=== PATIENT | male | born 1945 | race Caucasian/White ===

== ENCOUNTER → 2016-08-24 | Day surgery (SDC) | payer OTHER, MEDICARE ==
[~2016-08-24] VITALS: Ht 182.9 cm; Wt 70.0 kg
[~2016-08-24] MED LIST: FLOMAX0.4 MG PO; LEVAQUIN500 MG PO; PROAIR HFA8.5 GM INH; SYMBICORT 16010.2 GM INH; TYLENOL WITH C1 EACH PO
--- NOTE | ~2016-08-24 | OR ---
PATIENT'S NAME: GIOVANNA MCCORMICK [facility] AGE: 70 Y [address] ROOM: [place] [address] [place] [facility] [place] DATE: 08/24/2016 OR/Procedure Report DISCHARGE DATE: FAMILY PHYSICIAN: Salomón Guerin PA-C ATTENDING PHYSICIAN: Sheldon Parra SURGEON: Sheldon Parra MD CATERPILLAR OPERATOR: Charanjit Awan MD, PhD. DATE OF PROCEDURE: 08/24/2016 PREOPERATIVE DIAGNOSIS: Adenocarcinoma of the prostate. POSTOPERATIVE DIAGNOSIS: Adenocarcinoma of the prostate. PROCEDURE PERFORMED: Fiducial marker placement. ANESTHESIA: General. COMPLICATIONS: None. INDICATION FOR PROCEDURE: The patient is a 70-year-old male with adenocarcinoma of the prostate, Janet 9 (4+5) on the left and 3+3 for a total of 6 on the right. After considering his options, the patient had elected to go for external radiation therapy. DETAILS OF THE PROCEDURE: After informed consent was obtained, the patient was taken to the operating room. A general anesthetic was applied, and he was placed in the dorsal lithotomy position. An ultrasound probe was placed in the rectum and the prostate was visualized. Next, a fiducial marker needle was placed in the ultrasound under direct visualization. The marker was placed towards the base of the prostate on the patient's left. A 2nd marker was then placed on the patient's left at the apex. Fluoroscopy was then performed, which showed reasonably good positioning of his markers. We then repeated this process on the contralateral side and again checked with x-ray which showed excellent positioning of the markers. The patient tolerated his procedure well and was transferred to recovery room in good condition. MD PEGGY CUELLAR/russl /[id number] PATIENT'S NAME: GIOVANNA MCCORMICK [facility] AGE: 70 Y [address] ROOM: [place] [address] LOCATION: [facility] [place] DATE: 08/24/2016 OR/Procedure Report DISCHARGE DATE: FAMILY PHYSICIAN: Salomón Guerin PA-C ATTENDING PHYSICIAN: Sheldon Parra CC: Salomón Guerin PA-C d: 08/24/162020 t: 09/10/161914, OPERATIVE SUMMARY
--- NOTE | ~2016-08-24 | RTPR ---
PATIENT'S NAME: GIOVANNA MCCORMICK [facility] AGE: 70 Y [address] ROOM: [place] [address] LOCATION: [facility] [place] ADMIT DATE: 08/24/2016 Oncology Report DISCHARGE DATE: FAMILY PHYSICIAN: Salomón Guerin PA-C ATTENDING PHYSICIAN: Sheldon Parra RADIATION THERAPY PROCEDURE NOTE DATE OF SERVICE: 08/24/2016 PREOPERATIVE DIAGNOSIS: Adenocarcinoma of the prostate. POSTOPERATIVE DIAGNOSIS: Adenocarcinoma of the prostate. PROCEDURE: Fiducial marker placement. ANESTHESIA: General. COMPLICATIONS: None. INDICATIONS: The patient is 70-year-old white male with a known history of an adenocarcinoma of the prostate. Janet score 4 + 5 = 9 on the left 3 + 3 = 6 on the right. The patient comes in for fiducial marker placement. DESCRIPTION OF PROCEDURE: The patient was placed under general anesthetic after consent had been obtained. Ultrasound probe was placed in the rectum by Dr. Parra. The area of the prostate was visualized. After the area of the prostate had been appropriately visualized, needle with a marker in it was placed into the prostate. This was placed at the base on the left and I subsequently placed a marker seed in the left base of the prostate. After that had been done, a 2nd marker seed was placed at the left apex of the prostate. Fluoroscopy was done to make sure that the marker seeds were in appropriate place. This was confirmed, we thereafter switched, so that the needles were placed in the base and apex of the right prostate and a marker seeds were placed there by myself after Dr. Parra had placed the needles in the appropriate positions. Once all seeds had been placed, another fluoroscopic image was taken to make sure PATIENT'S NAME: GIVOANNA MCCORMICK [facility] AGE: 70 Y [address] ROOM: [place] [address] LOCATION: [facility] [place] ADMIT DATE: 08/24/2016 Oncology Report DISCHARGE DATE: FAMILY PHYSICIAN: Salomón Guerin PA-C ATTENDING PHYSICIAN: Sheldon Parra that the marker seeds were in the appropriate place, they were. At that point, the procedure was terminated and the patient was sent to recovery. The patient tolerated the procedure well. He will be brought back to radiation oncology in [address] for a CT simulation using the marker seeds to help localize the area of the prostate while he is under treatment. We thank you for allowing us to participate in his care. Sincerely, ÁNGEL DICKERSON MD, PHD GRACIELA/jayne /[id number] CC: Salomón Guerin PA-C d: 09/09/16 1443 t: 09/21/165, CONSULTATION REPORT
[2016-08-24 13:07] LABS: BASOPHIL # 0.1 K/uL (0.0-0.2); BASOPHIL % 0.8 %; EOSINOPHIL # 0.2 K/uL (0.0-0.5); EOSINOPHIL % 3.3 %; HEMATOCRIT 41.7 % (37.0-53.0); HEMOGLOBIN 12.7 g/dL (11.0-16.0); IMMATURE GRANULOCYTE % 0.2 %; LYMPHOCYTE # 1.4 K/uL (0.8-4.0); LYMPHOCYTE % 20.9 %; MCH 26.8 pg (27.0-34.0); MCHC 30.5 gm/dL (32.0-36.5); MONOCYTE # 0.6 K/uL (0.0-1.0); MONOCYTE % 8.3 %; MPV 9.9 fl (9.4-12.4); NEUTROPHIL # (ANC) 4.4 K/uL (1.4-9.0); NEUTROPHIL % 66.5 %; NRBC % 0 /100WBC (0-0.00); PLATELET COUNT 308 K/uL (150-450); RBC 4.74 M/uL (3.50-5.50); RDW-CV 15.6 % (11.9-14.6); WBC 6.6 K/uL (4.0-11.0)
[2016-08-24 13:22] LABS: ALBUMIN 2.8 gm/dL (3.5-5.0); ALK PHOS 109 IU/L (33-138); ALT 30 IU/L (12-78); ANION GAP 15.2 (10.0-19.0); AST 21 IU/L (10-40); BLOOD UREA NITROGEN 14 mg/dL (6-24); CALCIUM 9.5 mg/dL (8.5-10.5); CHLORIDE 102 mMol/L (96-110); CO2 27 mMol/L (22-32); CREATININE 0.8 mg/dL (0.6-1.3); ESTIMATED GFR (MDRD EQUATION) > 60; POTASSIUM 4.2 mMol/L (3.7-5.1); SODIUM 140 mMol/L (135-145); TOTAL BILIRUBIN 0.4 mg/dL (0.0-1.5); TOTAL PROTEIN 8.1 g/dL (6.0-8.4)
== END | disposition disaster alternative care site (69) ==
LOC: GPOC 08-17 10:00 → GSDC 12:21
PROVIDERS: Urology
PROC: 0VH031Z Insertion of Radioactive Element into Prostate, Percutaneous Approach (ICD-10-PCS; principal; 2016-08-24)
DX: C61 Malignant neoplasm of prostate (principal); J44.9 Chronic obstructive pulmonary disease, unspecified; F32.9 Major depressive disorder, single episode, unspecified; G45.9 Transient cerebral ischemic attack, unspecified; F17.210 Nicotine dependence, cigarettes, uncomplicated; Z98.890 Other specified postprocedural states; Z79.899 Other long term (current) drug therapy
CPT/HCPCS: A4648; J2001; J2405; J7030